=== PATIENT | female | born 2000 ===

== ENCOUNTER 2021-02-01 11:34 | Emergency (ER) ==
[2021-02-01] MEDS ORDERED: Boostrix 0.5 ML (Tdap) VIAL ONE (12:34)
[2021-02-01] MEDS ORDERED: Lidocaine 1% PF 5 ML VIAL ONE (13:00)
[2021-02-01] MEDS ORDERED: Sulfameth/Trimethoprim DS 800-160mg TAB ONE (13:30)
[2021-02-01] MEDS ORDERED: Cephalexin 250 MG CAP ONE (13:30)
== END 2021-02-01 13:48 | disposition home or self-care (01) ==
LOC: ERS 11:34 → EDSEX 11:34 → ERS 13:48
DX: S80.251A Superficial foreign body, right knee, initial encounter (principal); W22.8XXA Striking against or struck by other objects, initial encounter; F17.210 Nicotine dependence, cigarettes, uncomplicated
CPT/HCPCS: 90471; 90715; 96372